=== PATIENT | female | born 1965 | race Caucasian/White ===

== ENCOUNTER 2020-02-07 14:37 | Inpatient (IN) | payer MEDICAID ==
[~2020-02-07] VITALS: Ht 167.6 cm; Wt 79.9 kg
[2020-02-07] MEDS ORDERED: ARISTADA882 MG/3.2 IM (15:16)
[2020-02-07] MEDS ORDERED: PROCTOZONE-HC30 GM R (15:16)
[2020-02-07] MEDS ORDERED: CLARITIN10 MG PO (15:17)
[2020-02-07] MEDS ORDERED: HALDOL DEC100 MG/1 M IM (15:17)
[2020-02-07] MEDS ORDERED: SYNTHROID25 MCG PO (15:18)
[2020-02-07] MEDS ORDERED: PROTONIX40 MG PO (15:19)
[2020-02-07] MEDS ORDERED: MOBIC7.5 MG PO (15:19)
[2020-02-07] MEDS ORDERED: PROPRANOLOL HCL20 MG PO (15:20)
[2020-02-07] MEDS ORDERED: ZOCOR40 MG PO (15:21)
[2020-02-07] MEDS ORDERED: VITAMIN D-40010 MCG PO (15:23)
[2020-02-07 19:01] VITALS: BP 130/66
[2020-02-07 20:00] VITALS: BP 130/66
[2020-02-07 22:13] VITALS: BP 130/66
[2020-02-08 03:32] LABS: BILIRUBIN NEGATIVE; CLARITY CLEAR (CLEAR); COLOR YELLOW (YELLOW); GLUCOSE NEGATIVE; KETONE NEGATIVE
[2020-02-08 03:33] LABS: BLOOD NEGATIVE (NEGATIVE); SPECIFIC GRAVITY 1.025 (1.005-1.030); UROBILINOGEN 0.2 E.U./dl (0.2-1.0)
[2020-02-08 03:34] LABS: NITRITE NEGATIVE (NEGATIVE)
[2020-02-08 03:35] LABS: LEUKO ESTERASE 1+ (NEGATIVE)
[2020-02-08 03:54] LABS: BACTERIA 1+
[2020-02-08 06:29] LABS: BASO # 0.1 10*3/uL (0.0-0.1); BASO % 0.6 % (0.0-1.0); EOS # 0.4 10*3/uL (0.0-0.4); HEMATOCRIT 47.9 % (37.0-47.0); LYMPH # 2.2 10*3/uL (1.3-4.4); LYMPH % 22.7 % (27.0-41.0); MEAN CELL VOLUME 91.8 fl (81.0-99.0); MEAN CORPUSCULAR HGB 29.5 pg (27.0-31.0); MEAN CORPUSCULAR HGB CONC 32.2 g/dl (33.0-37.0); MEAN PLATELET VOLUME 10.2 fl (9.6-12.3); MONO # 0.8 10*3/uL (0.1-1.0); MONO % 7.9 % (3.0-9.0); NEUT # 6.2 10*3/uL (2.3-7.9); NEUT % 64.6 % (47.0-73.0); PLATELET COUNT AUTOMATED 320 10*3/uL (130-400); RED BLOOD COUNT 5.22 10*6/uL (4.10-5.10); RED CELL DISTRI WIDTH 14.7 % (0-14.5); WHITE BLOOD COUNT 9.6 10*3/uL (4.8-10.8)
[2020-02-08 06:38] LABS: POTASSIUM 4.3 mmol/L (3.5-5.1)
[2020-02-08 06:49] LABS: ALBUMIN 3.5 gm/dl (3.1-4.5); CREATININE 1.26 mg/dL (0.55-1.02); THYROID STIM HORMONE (HS) 1.52 uIU/ml (0.358-4.75); TOTAL PROTEIN 7.7 gm/dL (6.4-8.2)
[2020-02-08 07:07] LABS: VITAMIN D, 25-HYDROXY 48.5 ng/mL (30-100)
[2020-02-08 08:00] VITALS: BP 106/72
[2020-02-08 20:00] VITALS: BP 101/58
[2020-02-09 08:03] VITALS: BP 114/80
[2020-02-09 19:16] VITALS: BP 114/80
[2020-02-10 08:00] VITALS: BP 111/68
[2020-02-10 19:53] VITALS: BP 109/65
[2020-02-11 07:55] VITALS: BP 114/77
[2020-02-11 20:00] VITALS: BP 112/66
[2020-02-12 07:23] VITALS: BP 107/71
[2020-02-12 20:00] VITALS: BP 111/73
[2020-02-13 07:26] VITALS: BP 102/64
[2020-02-13 20:00] VITALS: BP 96/59
[2020-02-14 07:57] VITALS: BP 116/65
[2020-02-14 19:57] VITALS: BP 112/64
[2020-02-15 07:52] VITALS: BP 116/66
[2020-02-15 20:00] VITALS: BP 122/69
[2020-02-16 07:52] VITALS: BP 110/70
[2020-02-16 09:14] VITALS: BP 118/86
[2020-02-16 10:04] LABS: BASO # 0.1 10*3/uL (0.0-0.1); BASO % 0.6 % (0.0-1.0); EOS # 0.5 10*3/uL (0.0-0.4); HEMATOCRIT 39.1 % (37.0-47.0); LYMPH # 2.2 10*3/uL (1.3-4.4); LYMPH % 23.7 % (27.0-41.0); MEAN CELL VOLUME 92.7 fl (81.0-99.0); MEAN CORPUSCULAR HGB 29.6 pg (27.0-31.0); MEAN PLATELET VOLUME 10.1 fl (9.6-12.3); MONO # 1.1 10*3/uL (0.1-1.0); MONO % 12.5 % (3.0-9.0); NEUT # 5.2 10*3/uL (2.3-7.9); NEUT % 57.4 % (47.0-73.0); PLATELET COUNT AUTOMATED 282 10*3/uL (130-400); RED BLOOD COUNT 4.22 10*6/uL (4.10-5.10); RED CELL DISTRI WIDTH 14.8 % (0-14.5); WHITE BLOOD COUNT 9.1 10*3/uL (4.8-10.8)
[2020-02-16 10:20] LABS: ALBUMIN 2.8 gm/dl (3.1-4.5); CREATININE 1.24 mg/dL (0.55-1.02); POTASSIUM 4.1 mmol/L (3.5-5.1); TOTAL PROTEIN 6.5 gm/dL (6.4-8.2)
[2020-02-16 20:00] VITALS: BP 127/77
[2020-02-17 08:00] VITALS: BP 105/63
[2020-02-17 19:44] VITALS: BP 108/67
[2020-02-18 07:03] VITALS: BP 104/82
[2020-02-18 20:00] VITALS: BP 101/66
[2020-02-19 07:44] VITALS: BP 116/61
[2020-02-19 20:00] VITALS: BP 121/78
[2020-02-20 07:24] VITALS: BP 103/66
[2020-02-20 20:19] VITALS: BP 112/64
[2020-02-21 07:20] VITALS: BP 128/66
[2020-02-21 20:00] VITALS: BP 94/58
[2020-02-22 06:42] VITALS: BP 118/68
[2020-02-22 19:48] VITALS: BP 111/66
[2020-02-23 08:00] VITALS: BP 103/64
[2020-02-23 19:37] VITALS: BP 102/58
[2020-02-24 07:33] VITALS: BP 90/65
[2020-02-24 07:47] VITALS: BP 110/82
[2020-02-24] MEDS ORDERED: INVEGA SUSTENN156 MG IM (09:23)
[2020-02-24] MEDS ORDERED: CLONAZEPAM1 MG PO (09:23)
[2020-02-24] MEDS ORDERED: PHARMASSURE V500 MCG PO (09:23)
[2020-02-24] MEDS ORDERED: HALOPERIDO100 MG/1 M IM (09:23)
[2020-02-24] MEDS ORDERED: VITAMIN D310 MCG PO (09:23)
[2020-02-24] MEDS ORDERED: BENZTROPINE MESY1 MG PO (09:44)
[2020-02-24] MEDS ORDERED: Haldol Decanoate IM (09:44)
[2020-02-24] MEDS ORDERED: SYNTHROID25 MCG PO (12:03)
[2020-02-24] MEDS ORDERED: PROPRANOLOL HCL20 MG PO (12:03)
[2020-02-24] MEDS ORDERED: PROTONIX40 MG PO (12:03)
[2020-02-24] MEDS ORDERED: VITAMIN D-40010 MCG PO (12:03)
[2020-02-24] MEDS ORDERED: PROCTOZONE-HC30 GM R (12:03)
[2020-02-24] MEDS ORDERED: MOBIC7.5 MG PO (12:03)
[2020-02-24] MEDS ORDERED: ZOCOR40 MG PO (12:03)
[2020-02-24] MEDS ORDERED: CLARITIN10 MG PO (12:03)
== END 2020-02-24 14:03 | DRG 750 ==
LOC: 3N 14:37
PROVIDERS: Counselor Professional; ADMIT Psychiatry & Neurology Psychiatry; ATTEND Psychiatry & Neurology Psychiatry
DX: F25.9 Schizoaffective disorder, unspecified (principal); N17.0 Acute kidney failure with tubular necrosis; K21.9 Gastro-esophageal reflux disease without esophagitis; F32.9 Major depressive disorder, single episode, unspecified; E03.9 Hypothyroidism, unspecified; M54.9 Dorsalgia, unspecified; M17.10 Unilateral primary osteoarthritis, unspecified knee; E78.2 Mixed hyperlipidemia; M17.0 Bilateral primary osteoarthritis of knee; G24.01 Drug induced subacute dyskinesia; Z20.828 Contact with and (suspected) exposure to other viral communicable diseases; I10 Essential (primary) hypertension; G40.909 Epilepsy, unspecified, not intractable, without status epilepticus; G89.29 Other chronic pain; Z88.2 Allergy status to sulfonamides; Z79.899 Other long term (current) drug therapy; Z88.8 Allergy status to other drugs, medicaments and biological substances; Z88.6 Allergy status to analgesic agent; Z88.1 Allergy status to other antibiotic agents; Z91.010 Allergy to peanuts